=== PATIENT | female | born 1995 | race Caucasian/White ===

== ENCOUNTER 2018-11-22 13:26 | Outpatient (CLI) | payer OTHER | END 2018-11-22 15:10 | disposition home or self-care (01) | LOC: OBT 13:26 → L-D 13:27 → OBT 15:10 | DX: O24.419 Gestational diabetes mellitus in pregnancy, unspecified control (principal); Z3A.36 36 weeks gestation of pregnancy | CPT/HCPCS: 76818 ==

== ENCOUNTER 2018-12-13 10:05 | Outpatient (CLI) | payer OTHER | END 2018-12-13 14:05 | disposition home or self-care (01) | LOC: OBT 10:05 → L-D 10:05 → OBT 14:05 | DX: O24.410 Gestational diabetes mellitus in pregnancy, diet controlled (principal); Z3A.34 34 weeks gestation of pregnancy | CPT/HCPCS: 76818; 82962 ==

== ENCOUNTER 2018-12-18 06:45 | Inpatient (IN) | payer OTHER ==
[2018-12-18] MEDS: LACTATED RINGER'S 1,000 ML IV ×5 (07:20→21:58)
[2018-12-18] MEDS ORDERED: CARBOPROST 250 MCG INJ IM ×2 (07:30→10:30)
[2018-12-18] MEDS ORDERED: METHYLERGONOVINE 0.2 MG INJ IM ×2 (07:30→10:30)
[2018-12-18] MEDS ORDERED: OXYTOCIN 30 UNITS/LR 500 ML IV ×4 (07:30→12:16)
[2018-12-18] MEDS ORDERED: MISOPROSTOL 200 MCG TAB PR ×2 (07:30→10:30)
[2018-12-18] MEDS: AZITHROMYCIN 500MG/NS (PMX) 250 ML IV (07:31)
[2018-12-18] MEDS: CITRIC ACID/NA CITRATE 30 ML CUP PO (07:33)
[2018-12-18 07:38] LABS: ADD MAN DIFF? NO
[2018-12-18 07:41] LABS: BASOPHILS % 0.3 % (0.0-2.0); EOSINOPHILS # 0.1 10^3/ul (0.0-0.5); EOSINOPHILS % 0.6 % (0.0-7.0); HEMATOCRIT 35.8 % (37.0-47.0); LYMPHOCYTES # 1.8 10^3/ul (0.8-2.9); MEAN CORPUSCULAR HEMOGLOBIN 30.2 pg (29.0-33.0); MEAN CORPUSCULAR HGB CONC 33.5 g/dl (32.0-37.0); MEAN CORPUSCULAR VOLUME 89.9 fl (82.0-101.0); MEAN PLATELET VOLUME 11.3 fl (7.4-10.4); MONOCYTE # 0.6 10^3/ul (0.3-0.9); MONOCYTES % 6.6 % (0.0-11.0); NEUTROPHIL # 6.3 10^3/ul (1.6-7.5); NEUTROPHILS % 71.9 % (39.0-77.0); PLATELET COUNT 157 10^3/UL (140-415); RED BLOOD COUNT 3.98 10^6/ul (4.20-5.40); RED CELL DISTRIBUTION WIDTH 12.9 % (11.5-14.5)
[2018-12-18 07:41] LABS: WHITE BLOOD COUNT 8.8 10^3/ul (4.8-10.8)
[2018-12-18 08:00] LABS: GLUCOSE 86 mg/dl (70-220)
[2018-12-18 08:04] LABS: INR 0.85; PROTIME 11.7 Sec (11.9-14.9); PT RATIO 0.9
[2018-12-18 08:05] LABS: PARTIAL THROMBOPLASTIN TIME 25.8 Sec (23.0-35.0)
[2018-12-18 08:32] LABS: HEPATITIS B SURFACE ANTIGEN NEGATIVE (NEGATIVE)
[2018-12-18] MEDS ORDERED: morphine SULFATE/PF (10 MG/10 ML) INJ (08:45)
[2018-12-18] MEDS ORDERED: ONDANSETRON 4 MG INJ (08:46)
[2018-12-18] MEDS ORDERED: KETOROLAC 30 MG INJ (08:46)
[2018-12-18] MEDS ORDERED: METOCLOPRAMIDE 10 MG INJ (08:46)
[2018-12-18] MEDS ORDERED: FENTAnyl 50 MCG/ML VIAL (09:25)
[2018-12-18] MEDS ORDERED: METHYLERGONOVINE 0.2 MG TAB PO (10:30)
[2018-12-18] MEDS ORDERED: NA PHOSPHATE/BIPHOS 133 ML ENEMA PR (10:30)
[2018-12-18] MEDS: CEFAZOLIN 2 GM/50 ML (PMX) 50 ML IVPB ×3 (10:50→21:57)
[2018-12-18] MEDS ORDERED: DIPHENHYDRAMINE 50 MG INJ IV ×2 (11:00→13:00)
[2018-12-18] MEDS ORDERED: morphine 2 MG INJ IV ×5 (11:00→13:00)
[2018-12-18] MEDS ORDERED: ONDANSETRON 4 MG INJ IV ×2 (11:00→13:00)
[2018-12-18] MEDS: morphine 2 MG INJ IV (11:09)
[2018-12-18] MEDS: OXYTOCIN 30 UNITS/LR 500 ML IV (11:14)
[2018-12-18] MEDS: KETOROLAC 30 MG INJ IV ×3 (12:00→23:52)
[2018-12-18] MEDS: ONDANSETRON 4 MG INJ IV (12:00)
[2018-12-18] MEDS ORDERED: KETOROLAC 30 MG INJ IV (13:00)
[2018-12-18] MEDS ORDERED: NALOXONE (0.4 MG/ML) INJ IV (13:00)
[2018-12-18] MEDS: LANOLIN HPA 1 PKT TOP (18:22)
[2018-12-18] MEDS: SENNA/DOCUSATE NA (8.6MG/50MG) TAB PO (20:55)
[2018-12-18] MEDS: LABETALOL 100 MG TAB PO (20:56)
[2018-12-18 22:15] LABS: RAPID PLASMA REAGIN NONREACTIVE (NR)
[2018-12-19] MEDS: KETOROLAC 30 MG INJ IV ×3 (05:30→18:00)
[2018-12-19] MEDS: CEFAZOLIN 2 GM/50 ML (PMX) 50 ML IVPB ×2 (05:44→13:04)
[2018-12-19] MEDS: LACTATED RINGER'S 1,000 ML IV (06:28)
[2018-12-19] MEDS: LABETALOL 100 MG TAB PO ×2 (09:00→21:26)
[2018-12-19 09:09] LABS: ADD MAN DIFF? NO
[2018-12-19 09:14] LABS: BASOPHILS % 0.3 % (0.0-2.0); EOSINOPHILS % 0.3 % (0.0-7.0); HEMATOCRIT 34.7 % (37.0-47.0); HEMOGLOBIN 11.3 g/dl (12.0-16.0); LYMPHOCYTES # 1.2 10^3/ul (0.8-2.9); LYMPHOCYTES % 10.7 % (15.0-51.0); MEAN CORPUSCULAR HEMOGLOBIN 30.4 pg (29.0-33.0); MEAN CORPUSCULAR HGB CONC 32.6 g/dl (32.0-37.0); MEAN CORPUSCULAR VOLUME 93.3 fl (82.0-101.0); MEAN PLATELET VOLUME 11.3 fl (7.4-10.4); MONOCYTE # 0.6 10^3/ul (0.3-0.9); MONOCYTES % 5.8 % (0.0-11.0); NEUTROPHIL # 8.9 10^3/ul (1.6-7.5); NEUTROPHILS % 82.4 % (39.0-77.0); PLATELET COUNT 133 10^3/UL (140-415); RED BLOOD COUNT 3.72 10^6/ul (4.20-5.40); RED CELL DISTRIBUTION WIDTH 13.1 % (11.5-14.5)
[2018-12-19 09:14] LABS: WHITE BLOOD COUNT 10.8 10^3/ul (4.8-10.8)
[2018-12-19 09:32] LABS: ALANINE AMINOTRANSFERASE 19 IU/L (13-69); ALBUMIN/GLOBULIN RATIO 1.03; ALKALINE PHOSPHATASE 158 IU/L (42-121); ANION GAP 7 (5-13); ASPARTATE AMINO TRANSFERASE 32 IU/L (15-46); BILIRUBIN,INDIRECT 0.9 mg/dl (0-1.1); BILIRUBIN,TOTAL 0.9 mg/dl (0.2-1.3); BLOOD UREA NITROGEN 10 mg/dl (7-20); CALCIUM 8.6 mg/dl (8.4-10.2); CARBON DIOXIDE 23 mmol/L (21-31); CHLORIDE 109 mmol/L (97-110); CREATININE 0.69 mg/dl (0.44-1.00); Estimated GFR > 60 mL/min (>60); GLUCOSE 65 mg/dl (70-220); POTASSIUM 3.8 mmol/L (3.5-5.1); SODIUM 139 mmol/L (135-144); TOTAL PROTEIN 5.9 g/dl (6.1-8.1); URIC ACID 4.5 mg/dl (3.1-7.9)
[2018-12-19 09:33] LABS: INR 0.94; PROTIME 12.7 Sec (11.9-14.9)
[2018-12-19 09:34] LABS: PARTIAL THROMBOPLASTIN TIME 27.5 Sec (23.0-35.0)
[2018-12-19] MEDS: SENNA/DOCUSATE NA (8.6MG/50MG) TAB PO ×2 (09:49→21:26)
[2018-12-19 10:00] LABS: ADD UMIC NO; UR ASCORBIC ACID NEGATIVE (NEGATIVE); UR BILIRUBIN (Dip) NEGATIVE (NEGATIVE); UR BLOOD (Dip) NEGATIVE (NEGATIVE); UR CLARITY CLEAR (CLEAR); UR COLOR STRAW (YELLOW); UR GLUCOSE (Dip) NEGATIVE (NEGATIVE); UR KETONES (Dip) TRACE mg/dL (NEGATIVE); UR LEUKOCYTE ESTERASE (Dip) NEGATIVE Leu/ul (NEGATIVE); UR NITRITE (Dip) NEGATIVE (NEGATIVE); UR SPECIFIC GRAVITY (Dip) 1.005 (1.003-1.030); UR TOTAL PROTEIN (Dip) NEGATIVE (NEGATIVE); UR UROBILINOGEN (Dip) NEGATIVE (NEGATIVE)
[2018-12-19] MEDS: HYDROCODONE/APAP (5/325) TAB PO ×2 (10:40→17:24)
[2018-12-20] MEDS: IBUPROFEN 800 MG TAB PO ×4 (03:38→22:06)
[2018-12-20] MEDS: LABETALOL 100 MG TAB PO ×2 (09:00→22:07)
[2018-12-20] MEDS: SENNA/DOCUSATE NA (8.6MG/50MG) TAB PO ×2 (09:21→22:06)
[2018-12-20] MEDS: LANOLIN HPA 1 PKT TOP (10:26)
[2018-12-20] MEDS: HYDROCODONE/APAP (5/325) TAB PO ×3 (16:00→19:58)
[2018-12-21] MEDS: LANOLIN HPA 1 PKT TOP ×2 (04:36→10:41)
[2018-12-21] MEDS: IBUPROFEN 800 MG TAB PO ×2 (06:00→12:15)
[2018-12-21] MEDS: LABETALOL 100 MG TAB PO (09:00)
[2018-12-21] MEDS: MEASLES,MUMPS,RUBELLA VACCINE INJ SC* (09:00)
[2018-12-21] MEDS: SENNA/DOCUSATE NA (8.6MG/50MG) TAB PO (09:29)
[2018-12-21] MEDS: DIPHTH/TET/ACEL PERTUSS (ADULT) 0.5 ML VIAL IM* (12:17)
== END 2018-12-21 16:10 | disposition home or self-care (01) | DRG 788 ==
LOC: L-D 06:45 → PP1 12:03
PROVIDERS: Obstetrics & Gynecology
PROC: 10D00Z1 Extraction of Products of Conception, Low, Open Approach (ICD-10-PCS; principal; 2018-12-18 09:00)
PROC: 3E033VJ Introduction of Other Hormone into Peripheral Vein, Percutaneous Approach (ICD-10-PCS; 2018-12-18 09:00)
DX: O24.429 Gestational diabetes mellitus in childbirth, unspecified control (principal); O99.62 Diseases of the digestive system complicating childbirth; O32.1XX0 Maternal care for breech presentation, not applicable or unspecified; O13.4 Gestational [pregnancy-induced] hypertension without significant proteinuria, complicating childbirth; Z3A.39 39 weeks gestation of pregnancy; Z37.0 Single live birth
CPT/HCPCS: 80053; 81003; 82947; 84560; 85025; 85384; 85610; 85730; 86592; 86850; 86900; 86901; 87340; 90715; 99464